=== PATIENT | male | born 1950 | race Caucasian/White ===

== ENCOUNTER 2025-02-24 13:57 | Outpatient (AMB) | payer MEDICARE, MEDICAID, SELFPAY ==
--- NOTE | 2025-02-24 14:16 | A.OFFVIS_ITS ---
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 The patient was recently hospitalized after being found on the floor and unable to get up while living alone in a motel. After a short-term rehab stay, the patient had subsequent hospitalizations in December for weakness and inability to get out of bed, which precipitated a move to a memory care unit on January 09. Cognitive changes, including repetition and difficulty with articulation, were first noticed by the patient's hide and skin processing worker around 2021, with a more rapid decline observed in 2022. The patient has a history of alcohol use, which reportedly stopped in 2021. A prior diagnosis of normal pressure hydrocephalus was suggested following a brain scan in 2021 after a fall. A temporary change in gait, described as a high-stepping motion, was noted in mid-2022 but has since resolved. The patient's hide and skin processing worker reports that the patient has a lifelong history of making poor decisions and was formerly verbally abusive, though this behavior has reportedly decreased. Review of Systems Narrative - Constitutional: Reports history of weakness and a 20-pound weight loss. - Neurological: Reports forgetfulness, cognitive decline with repetition, and difficulty with articulation. - Psychiatric: Denies recent personality change, but notes a decrease in prior aggressive and verbally abusive behavior. - Musculoskeletal: Reports multiple falls and a history of a temporary gait change that has resolved. - urinary: Complain of urgency and incontinence - HEENT: No cold or flu-like illness Also refer to scanned ROS Physical Exam Neuro Other: Mental Status: He is alert and awake with normal spontaneity and fluency of speech. Comprehension is intact. Affect is flat. Mini-mental status score is 20. Cranial Nerves: CN II: Visual beltre full to confrontation, visual acuity intact. CN III, IV, : Pupils equal, round, reactive to light and accommodation. Extraocular movements are normal. CN V: Facial sensation is normal. CN VII: Facial movements symmetrical. CN VIII: Hearing intact to bedside conversation is normal. CN IX, X: Palate elevates symmetrically. CN XI: Shoulder shrug and head turn symmetrical. CN XII: Tongue midline without atrophy or fasciculations. Motor: No obvious focal weakness. Reflexes: Deep tendon reflexes are trace to absent. Coordination: [id number] is okay Gait and Station: Walking cautiously with a walker but can walk without it with no sign of magnet autism or dragging. Extrapyramidal: Full facial expressions and blinking. No rigidity. Movements are appropriate with no tremor or abnormality. Speech: Normal; no dysarthria or tremor. Assessment & Plan Assessment & Plan (1) Multifactorial dementia: Comment: CT brain WO at [facility] in October 2024: Further worsening of left temporal atrophy to severe CT brain WO at [facility] in 2021: Mod ventriculomegaly, probably atrophy, mod cortical atrophy, mod to severe left temporal atrophy Code(s): F03.90 - Unspecified dementia, unspecified severity, without behavioral disturbance, psychotic disturbance, mood disturbance, and anxiety Category: Medical (2) Alzheimer dementia: Code(s): G30.9 - Alzheimer's disease, unspecified; F02.80 - Dementia in other diseases classified elsewhere, unspecified severity, without behavioral disturbance, psychotic disturbance, mood disturbance, and anxiety Category: Medical Qualifiers: Alzheimer's disease onset: late onset Dementia severity: severe Dementia behavioral or psychological symptom: without behavioral, psychotic, or mood disturbance or anxiety Qualified Code(s): G30.1 - Alzheimer's disease with late onset; F02.C0 - Dementia in other diseases classified elsewhere, severe, without behavioral disturbance, psychotic disturbance, mood disturbance, and anxiety Plan Impression: Moderately severe dementia from cortical and especially left temporal atrophy with h/o alcohol drinking. Cerebral ventricles are somewhat enlarged which might suggest an element of normal-pressure hydrocephalus but the amount of temporal lobe degeneration is significant. I am not sure if exploration or treatment of hydrocephalus would make any meaningful practical difference. Conservative management is recommended. Rec: a: Education of b: Should not live alone c: Health proxy should be invoked d: B12/folate levels e: No driving f: Cannot make sound financial decisions g: Memantine 5mg bid Orders: Orders Vitamin B12 and Folate Today F02.C0 - Dementia in other diseases classified elsewhere, severe, without behavioral disturbance, psychotic disturbance, mood disturbance, and anxiety, F03.90 - Unspecified dementia, unspecified severity, without behavioral disturbance, psychotic disturbance, mood disturbance, and anxiety, G30.1 - Alzheimer's disease with late onset Medications: New memantine 5 mg PO BID 180 tabs 0RF 30 days Coding Level of Care Code New Pt Level 5 (92470) Diagnoses Multifactorial dementia F03.90 Severe late onset Alzheimer's dementia without behavioral disturbance, psychotic disturbance, mood disturbance, or anxiety G30.1; F02.C0 Alzheimer's disease onset: late onset Dementia severity: severe Dementia behavioral or psychological symptom: without behavioral, psychotic, or mood disturbance or anxiety Time Spent (min) 60
--- OUTSIDE RECORDS SUMMARY | 2025-02-24 18:55 | XMS_ITS | Encounter Summary ---
Author Organization [facility] Address [address] [place] [address] Care Team Providers Care Powder Mill Operator Name Role Phone Gail Egan MD Primary Care Provider Encounter Details Date Type Department Care Team (Late st Contact Info) Description 11/06/2024 Referral Triage [facility] [address] [place] [address] Piper Casillas Social History Tobacco Use Types Packs/Day Years Used Date Smoking Tobacco: Former Alcohol Use Standard Drinks/Week Comments Not Currently 0 (1 standard drink = 0.6 oz pur e alcohol) Interpersonal Safety Answer Date Record ed Physical Abuse Unrecognized value 10/25/2024 Verbal Abuse Unrecognized value 10/25/2024 Sex and Gender Information Value Date Recorded Sex Assigned at Not on file Legal Sex Male 8:58 PM EST Gender Identity Not on file Sexual Orientation Not on file documented as of this encounter Plan of Treatment Not on file documented as of this encounter Visit Diagnoses Not on filedocumented in this encounter Additional Health Concerns Infection Onset Date Last Indicated Resolved Time Respiratory Rule-Out 12/16/2024 12/16/2024 025 3:27 PM EDT documented as of this encounter Care Teams Powder Mill Operator Relationship Specialty Start Date End Date Gail Egan MD [address] [place] [id number] PCP - General Internal Medicine 01/26/24 documented as of this encounter
--- OUTSIDE RECORDS SUMMARY | 2025-02-24 18:55 | XMS_ITS | Clinical Summary ---
Author Organization [facility] Address [address] [place] [address] Care Team Providers Care Digital Media Intern Name Role Phone Christina Garza DO Primary Care Provider [phone] Allergies Active Allergy Reactions Criticality Noted Date Comments Penicillins 01/24/2022 Medications Medication Sig Dispensed Refills Start Date End Date Status apixaban (ELIQUIS) 5 MG TABS tablet Take by mouth every 12 (twelve) hours. 0 Active atorvastatin (LIPITOR) tablet 10 mg Take 1 tablet (10 mg total) by mouth every evening. 0 Active Coenzyme X22-Ccidsxu E (Qunol Ultra CoQ10) 100-150 MG-UNIT CAPS Take by mouth daily. 0 Active Multiple Vitamins-Minerals (ONE-A-DAY 50 PLUS PO) Take by mouth daily. 0 Active Active Problems No known active problems Family History Relation Name Status Comments Father Mother Social History Tobacco Use Types Packs/Day Years Used Date Smoking Tobacco: Former Cigarettes 0.5 Q uit: 2010 Smokeless Tobacco: Never Tobacco Cessation:Counseling Given: Not Answered Alcohol Use Standard Drinks/Week Comments Not Currently 0 (1 standard drink = 0.6 oz pur e alcohol) Sex and Gender Information Value Date Recorded Sex Assigned at Not on file Gender Identity Not on file Sexual Orientation Not on file Job Start Date Occupation Industry Not on file Not on file Not on file Last Filed Vital Signs Vital Sign Reading Time Taken Comments Blood Pressure 126/64 05/10/2022 11:07 AM EST Pulse 70 05/10/2022 11:07 AM EST Temperature 36.3 C (97.3 F) 05/10/2022 11:07 AM EST Respiratory Rate - - Oxygen Saturation 100% 05/10/2022 11:07 AM EST Inhaled Oxygen Concentration - - Weight 85.7 kg (189 lb) 05/10/2022 11:07 AM EST Height 172.7 cm (5' 8 ) 05/10/2022 11:07 AM EST Body Mass Index 28.74 05/10/2022 11:07 AM EST Plan of Treatment Health Maintenance Due Date Last Done Comments Hepatitis C Screening 1950 Depression Screening 1962 Preventative Health Evaluation 01/27/1968 Colon Cancer Screening (Colonoscopy) 1995 Shingrix-Zoster Vaccine (1 o f 2) 01/27/2000 Fall Risk Assessment 2015 Pneumococcal Vaccine (3 of 3 - PPSV23 or PCV20) 02/20/2021 02/21/2016, 02/21/2011 DTap / Tdap / Td (3 - Td or Tdap) 07/20/2021 07/21/2011, 07/21/2011 COVID-19 Vaccine (3 - 2024-2 6 season) 2024 04/14/2021, 07/08/2020 Influenza Vaccine (#1) 2024 RSV Adult > 60+ Yrs or (1 - 1-dose 75+ series) 2025 Hepatitis B Vaccines Aged Out No long er eligible based on patient's age to complete this topic RSV Ped < 20 months Aged Out No longe r eligible based on patient's age to complete this topic Care Teams Digital Media Intern Relationship Specialty Start Date End Date Christina Garza DO [address] [place] [address] PCP - General Family Medicine 09/17/21
--- OUTSIDE RECORDS SUMMARY | 2025-02-24 18:55 | XMS_ITS | Data Portability ---
Author Organization [facility] [employer] [facility], Main Office Address [address] [place] [address] Care Team Providers Care Proof Operator Name Role Phone [facility] Primary Care Provider [phone] Assessment No assessment recorded. Plan of Treatment Reminders Order Date Submit Date Provider Last Modified By Organization Details Last Modified Time Details Appointments None record ed. Lab None record ed. Referral None record ed. Procedures None record ed. Surgeries None record ed. Imaging None record ed. Medication Orders None record ed. Patient TargetsNo targets recorded. Patient InstructionsNo instructions recorded. Reason for Referral None Reported. Problems Name Problem SNOMED Code Status Onset Date Resolution Date Notes Provider Name and Address Organization Details Recorded Time Essential hypertension 69084997 Active 2024 Not Available [facility] 16:51:19 Hyperlipidemi a 31092054 Active 2024 Not Available [facility] 16:51:20 Atrial fibrillation 74528586 Active 2024 Not Available [facility] 16:51:21 Benign prostatic hyperplasia 569825224 Active 2024 Not Available [facility] 16:51:21 Normal pressure hydrocephalus 27827062 Active 2024 CHENTE LANGE, SHABANA [address], [address], [place], [address] , [facility] 17:28:12 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 169461009 Active 2024 Not Available [facility] 16:51:22 Adult failure to thrive syndrome 688494725 Active 2024 Not Available [facility] 16:51:23 Malignant melanoma of skin 86877386 Active 2024 Not Available [facility] 5 16:51:23 Hemorrhoids 72626333 Active 2024 Not Available [facility] 16:51:23 Diverticulosi s of large intestine without diverticuliti s 96588705 Active 2024 Not Available [facility] 16:51:24 Disorder in remission 576404688 Active 2024 Not Available [facility] 16:54:46 Rhabdomyolysi s 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 Active 2024 Not Available [facility] 5 16:56:40 Fall Active 2024 Not Available [facility] 5 13:13:46 Injury of head 61334740 Active 2024 Not Available [facility] 5 13:15:43 History of deep vein thrombosis 521855200 Active 2024 CHENTE LANGE CNP [address] [place] [address], [phone] , [facility] 5 17:28:14 Retention of urine 153126496 Active 2024 CHENTE LANGE CNP [address] [place] [address], [phone] , [facility] 5 17:28:16 History of fall 601414279 Active 2024 CHENTE LANGE CNP [address] [place] [address], [phone] , [facility] 5 17:29:12 Problem Notes None recorded. Medical Equipment None Reported. Allergies Allergen ID Allergen Name Allergen Category Reaction Reaction Severity Criticality Documentation Date Start Date Code Code System Note Provider Name and Address Organization Details Recorded Time 49631 Product containin g penicilli n (product) medicatio n Not available Not available Not available 10/25/20242024 54609 8001 SNOMED Not Available [facility] 16:51:25 Medications Name Sig Start Date Stop Date Status Note LastModified by Organization Details LastModified Time Non-Aspirin Extra Strength 500 mg tablet Give 1 tablet by mouth every 4 hours as needed for Pain Do not exceed 3 grams in 24 hours AND Give 1 tablet by mouth every 4 hours as needed for Elevated temperature of 100.4 or greater Do not exceed 3 grams in 24 hours 2024 active Not Available Not Available Not Avai lable tamsulosin 0.4 mg capsule Give 1 capsule by mouth one time a day for BPH Do not crush/chew or open capsule. Take 30 minutes after the same meal each day. May cause dizziness. 2024 active Not Available Not Available Not Avai lable Laxative (sennosides) 8.6 mg tablet Give 1 tablet by mouth every 24 hours as needed for Constipatio n 2024 active Not Available Not Available Not Avai lable sodium phosphates 19 gram-7 gram/197 mL enema Insert 1 unit rectally every 24 hours as needed for Constipatio n Use only if Bisacodyl Suppository is ineffective 2024 active Not Available Not Available Not Avai lable Eliquis 5 mg tablet Give 1 tablet by mouth two times a day for A-Fib Monitor for bleeding, bruising, and black tarry stools 2024 active Not Available Not Available Not Avai lable OneLAX Bisacodyl 10 mg rectal suppository Insert 1 suppository rectally every 24 hours as needed for constipatio n Use if Senna is Ineffective 2024 active Not Available Not Available Not Avai lable Vitals Date Recorded Body weight Heart rate Respiratory rate Body temperature Oxygen saturation Systolic And Diastolic Provider Name and Address Organization Details Last Updated DateTime 52214.6 5 g 65 /min 18 /min 97.5 [degF] 98 % 103/63 mm[Hg] CHENTE LANGE, RECREATION TECHNICIAN [address] [facility], [address], [place], [address], [place] - [facility] 16:37:24 Social History None recorded. Functional Status None recorded. Mental Status None recorded. Family History Nothing Reported. Medical History No medical history recorded. Past Encounters Encounter ID Performer Location Encounter Start Date Encounter Closed Date Diagnosis/Indication Diagnosis SNOMED-CT Code Diagnosis ICD10 Code Diagnosis IMO Codes Diagnosis Note [id number] CHENTE LANGE RECREATION TECHNICIAN [facility] [address] [place] [address] 10/26/2024 15:09:41 11/02/2024 21:07:08 Normal pressure hydrocephalus 07794437 G91.2 03817 Refer to neurology for evaluation and treatment. PT, OT evaluation and treatment for gait training and safety.Fal l precaution in place History of deep vein thrombosis 627561793 Z86.118 8209246 hx of LLE DVTcurrent ly is on eliquis 5 mg BIDcontinu e Retention of urine 00853 4002 R33.9 54667 Started flomax during the hospitalmo nitor retention. History of fall 59589451 9 Z91.81 965768 PT, OT eval and treatmentm onitor fall risk, precuation in place [id number] HANSEL BRIONES NP [facility] [address] [place] [id number] 10/30/2024 22:22:36 11/03/2024 21:59:49 Normal pressure hydrocephalus 06913522 G91.2 59484 Refer to neurology for evaluation and treatment. PT, OT evaluation and treatment for gait training and safety.Fal l precaution in place History of deep vein thrombosis 786628538 Z86.056 4607004 hx of LLE DVTcurrent ly is on eliquis 5 mg BIDcontinu e Retention of urine 85008 4002 R33.9 84556 Started flomax during the hospitalmo nitor retention. History of fall 26537025 9 Z91.81 869130 PT, OT eval and treatmentm onitor fall risk, precuation in place Health Concerns Section Related Observation LastModified by Organization Detai ls LastModified Time None Recorded Concern Status LastModified by Organization Details LastModified Time None Recorded Advance Directives Directive None Recorded Payers Insurance Date Sequence Insurance Name Policy Number Policy Briones Covered Member ID Briones Member ID Guarantor Name 10/28/2024 1 [facility]: MEDICARE PPO BLUE (MEDICARE REPLACEMENT PPO) [id number] Ren Stein [id number] Ren Stein Notes Date Note Type Note Provider Name and Address Organization Details Recorded Time 10/26/2024 text/html Ren seen today for initial intake visit. Pt is a 74 y/o male admitted from hospital after presenting a fall and diagnosed with NPH. He stayed in ED and medical unit for couple of days and discharged to here for rehab. He was evaluated by psych for capacity evaluation in ED. His HCP is his ex .He was not treated for NPH, recommended to have neurology evaluation. During the hospital stay, he developed urinary retention and now he is on flomax. He lives in [facility] now, and his ex- reports that he is not safe to go to [facility] by himself. PMH significant for HTN, diverticulosis, malignant melanoma, HLD, internal hemorrhoids, LE DVT, and prothrombin mutation. Upon assessment today, he was alert, mildly confused, VSS and in NAD. He denies pain or difficulty voiding at this time. Code status reviewed, DNR, DNI.Pelaez fall, 75, high risk. CHENTE LANGE, SHABANA [address] [facility], [address], [place], [address], [employer] 10/26/2024 17:29:49 10/30/2024 text/html Ren seen today for acute visit. Pt is a 74 y/o male admitted from hospital after presenting a fall and diagnosed with NPH.PMH significant for HTN, diverticulosis, malignant melanoma, HLD, internal hemorrhoids, LE DVT, and prothrombin mutation. Upon assessment today, he was alert, mildly confused, Sitting in W/C. VSS and in NAD. He denies pain or difficulty voiding at this time. HANSEL BRIONES, CORINNE [address] [facility], [address], [place], [address], [employer] 10/30/2024 22:26:44
--- OUTSIDE RECORDS SUMMARY | 2025-02-24 18:55 | XMS_ITS | Encounter Summary ---
Author Organization [facility] Address [address] [place] [address] Care Team Providers Care Hydrostatic Tester Name Role Phone Gail Egan MD Primary Care Provider Encounter Details Date Type Department Care Team (Late st Contact Info) Description 11/08/2024 Lab Requisition [facility] - Main Lab [address] [facility] [place] [address] Leonard Giraldo MD [address] [place] [address] [address] [place], [address] Essential (primary) hypertension Social History Tobacco Use Types Packs/Day Years [...] documented as of this encounter Visit Diagnoses Diagnosis Essential (primary) hypertension Unspecified essential hypertension documented in this encounter Additional Health Concerns Infection Onset Date Last Indicated Resolved Time Respiratory Rule-Out 12/16/2024 12/16/2024 025 3:27 PM EDT documented as of this encounter Care Teams Hydrostatic Tester Relationship Specialty Start Date End Date Gail Egan MD [address] [place] [address] PCP - General Internal Medicine 01/26/24 documented as of this encounter
--- OUTSIDE RECORDS SUMMARY | 2025-02-24 18:55 | XMS_ITS | Encounter Summary ---
Author Organization [facility] Address [address] [place] [address] Care Team Providers Care Recreation Program Specialist Name Role Phone Gail Egan MD Primary Care Provider Encounter Details Date Type Department Care Team (Late st Contact Info) Description 11/01/2024 Lab Requisition [facility] - Main Lab [address] [facility] [place] [address] Leonard Giraldo MD [address] [place] [address] [address] [place], [phone] Essential (primary) hypertension Social History Tobacco [...] on file documented as of this encounter Procedures Procedure Name Priority Date/Time Associated Diagnosis Comments COMPLETE BLOOD COUNT Routine 11/04/2024 5:39 AM EDT Essential (primary) hypertension BASIC METABOLIC PANEL Routine 11/04/2024 5:39 AM EDT Essential (primary) hypertension documented in this encounter Results * (ABNORMAL) Basic metabolic panel (11/04/2024 5:39 AM EDT) Sodium 140 133 - 145 mmol/L LAB CHEMISTRY METHOD 11/04/2024 11:35 AM [facility] Potassium 4.0 3.5 - 5.5 mmol/L LAB CHEMISTRY METHOD 11/04/2024 11:35 AM [facility] Chloride 107 96 - 110 mmol/L LAB CHEMISTRY METHOD 11/04/2024 11:35 AM [facility] CO2 25 21 - 32 mmol/L LAB CHEMISTRY METHOD 11/04/2024 11:35 AM [facility] Anion Gap 8 3 - 11 LAB CHEMISTRY METHOD 11/04/2024 11:35 AM [facility] Glucose 59(L) 70 - 100 mg/dL LAB CHEMISTRY METHOD 11/04/2024 11:35 AM [facility] BUN 18 5 - 25 mg/dL LAB CHEMISTRY METHOD 11/04/2024 11:35 AM [facility] Creatinine 1.03 0.70 - 1.30 mg/dL LAB CHEMISTRY METHOD 11/04/2024 11:35 AM [facility] eGFR 76 >=60 mL/min/1. 73m2 LAB CHEMISTRY METHOD 11/04/2024 11:35 AM [facility] Comment:Calculation based on the Chronic Kidney Disease Epidemiology Collaboration (CKD-EPI) equation refit without adjustment for race. BUN/Creatinine Ratio 17.5 LAB CHEMISTRY METHOD 11/04/2024 11:35 AM [facility] Calcium 8.7 8.5 - 10.5 mg/dL LAB CHEMISTRY METHOD 11/04/2024 11:35 AM EDT [facility] Blood Venous blood specimen / Unknown Venipuncture / Unknown 11/04/2024 5:39 AM EDT 11/04/2024 10:15 AM EDT us Leonard Giraldo MD LAB BLOOD ORDERABLES Final Resul t [facility] [address] [place] [address], * (ABNORMAL) Complete blood count (11/04/2024 5:39 AM EDT) WBC 8.1 4.8 - 10.8 K/mcL LAB HEMETOLOGY METHOD 11/04/2024 11:23 AM [facility] RBC 4.50 4.50 - 5.50 M/[facility] LAB HEMETOLOGY METHOD 11/04/2024 11:23 AM [facility] Hemoglobin 13.8 13.5 - 17.5 g/dL LAB HEMETOLOGY METHOD 11/04/2024 11:23 AM [facility] Hematocrit 41.9(L) 42.0 - 54.0 % LAB HEMETOLOGY METHOD 11/04/2024 11:23 AM [facility] MCV 93.3 79.0 - 98.0 FL LAB HEMETOLOGY METHOD 11/04/2024 11:23 AM EDT [facility] MCH 30.7 27.0 - 32.0 pcg LAB HEMETOLOGY METHOD 11/04/2024 11:23 AM [facility] MCHC 32.9 32.0 - 37.0 g/dL LAB HEMETOLOGY METHOD 11/04/2024 11:23 AM [facility] RDW 13.3 11.0 - 15.0 % LAB HEMETOLOGY METHOD 11/04/2024 11:23 AM EDT [facility] Platelets 205 130 - 400 K/mcL LAB HEMETOLOGY METHOD 11/04/2024 11:23 AM EDT [facility] MPV 11.1(H) 7.0 - 11.0 FL LAB HEMETOLOGY METHOD 11/04/2024 11:23 AM EDT [facility] NRBC 0.0 <1.0 % LAB HEMETOLOGY METHOD 11/04/2024 11:23 AM EDT [facility] NRBC Absolute 0.00 <0.10 K/mcL LAB HEMETOLOGY METHOD 11/04/2024 11:23 AM EDT [facility] Blood Venous blood specimen / Unknown Venipuncture / Unknown 11/04/2024 5:39 AM EDT 11/04/2024 10:15 AM EDT us Leonard Giraldo MD LAB BLOOD ORDERABLES Final Resul t [facility] [address] [place] [address], documented in this encounter Visit Diagnoses Diagnosis Essential (primary) hypertension Unspecified essential hypertension documented in this encounter Additional Health Concerns Infection Onset Date Last Indicated Resolved Time Respiratory Rule-Out 12/16/2024 12/16/2024 025 3:27 PM EDT documented as of this encounter Care Teams Recreation Program Specialist Relationship Specialty Start Date End Date Gail Egan MD [address] [place] [id number] PCP - General Internal Medicine 01/26/24 documented as of this encounter
--- OUTSIDE RECORDS SUMMARY | 2025-02-24 18:55 | XMS_ITS ---
Author Name [facility] Organization Unknown Care Team Organization Name Specialty Phone Email Start Date End Da te [facility] Christina Garza DO Primary Care 02/08/202211/01
--- OUTSIDE RECORDS SUMMARY | 2025-02-24 18:55 | XMS_ITS | Encounter Summary ---
Author Organization [facility] Address [address] [place] [address] Care Team Providers Care Ergonomist Name Role Phone Gail Egan MD Primary Care Provider Encounter Details Date Type Department Care Team (Late st Contact Info) Description 10/28/2024 Lab Requisition [facility] - Main Lab [address] [facility] [place] [address] Leonard Giraldo MD [address] [place] [address] [address] [place], [phone] Essential (primary) hypertension Social History Tobacco [...] Associated Diagnosis Comments COMPLETE BLOOD COUNT Routine 10/28/2024 5:55 AM EDT Essential (primary) hypertension COMPREHENSIVE METABOLIC PANEL Routine 10/28/2024 5:55 AM EDT Essential (primary) hypertension documented in this encounter Results * (ABNORMAL) Comprehensive metabolic panel (10/28/2024 5:55 AM EDT) Sodium 140 133 - 145 mmol/L LAB CHEMISTRY METHOD 10/28/2024 2:27 PM [facility] Potassium 4.5 3.5 - 5.5 mmol/L LAB CHEMISTRY METHOD 10/28/2024 2:27 PM [facility] Chloride 107 96 - 110 mmol/L LAB CHEMISTRY METHOD 10/28/2024 2:27 PM [facility] CO2 28 21 - 32 mmol/L LAB CHEMISTRY METHOD 10/28/2024 2:27 PM [facility] Anion Gap 5 3 - 11 LAB CHEMISTRY METHOD 10/28/2024 2:27 PM [facility] Glucose 61(L) 70 - 100 mg/dL LAB CHEMISTRY METHOD 10/28/2024 2:27 PM [facility] BUN 15 5 - 25 mg/dL LAB CHEMISTRY METHOD 10/28/2024 2:27 PM [facility] Creatinine 0.99 0.70 - 1.30 mg/dL LAB CHEMISTRY METHOD 10/28/2024 2:27 PM [facility] eGFR 80 >=60 mL/min/1. 73m2 LAB CHEMISTRY METHOD 10/28/2024 2:27 PM [facility] Comment:Calculation based on the Chronic Kidney Disease Epidemiology Collaboration (CKD-EPI) equation refit without adjustment for race. BUN/Creatinine Ratio 15.2 LAB CHEMISTRY METHOD 10/28/2024 2:27 PM [facility] Calcium 8.8 8.5 - 10.5 mg/dL LAB CHEMISTRY METHOD 10/28/2024 2:27 PM EDT [facility] AST (SGOT) 22 10 - 42 unit/L LAB CHEMISTRY METHOD 10/28/2024 2:27 PM EDT [facility] ALT (SGPT) 22 10 - 60 unit/L LAB CHEMISTRY METHOD 10/28/2024 2:27 PM T [facility] Alkaline Phosphatase 89 42 - 121 unit/L LAB CHEMISTRY METHOD 10/28/2024 2:27 PM EDT [facility] Total Protein 6.0 6.0 - 8.0 g/dL LAB CHEMISTRY METHOD 10/28/2024 2:27 PM [facility] Albumin 3.0(L) 3.2 - 5.0 g/dL LAB CHEMISTRY METHOD 10/28/2024 2:27 PM [facility] Total Bilirubin 0.5 0.0 - 1.4 mg/dL LAB CHEMISTRY METHOD 10/28/2024 2:27 PM T [facility] Blood Venous blood specimen / Unknown Venipuncture / Unknown 10/28/2024 5:55 AM EDT 10/28/2024 12:00 PM EDT us Leonard Giraldo MD LAB BLOOD ORDERABLES Final Resul t [facility] [address] [place] [address], * (ABNORMAL) Complete blood count (10/28/2024 5:55 AM EDT) WBC 8.1 4.8 - 10.8 K/mcL LAB HEMETOLOGY METHOD 10/28/2024 1:53 PM EDT [facility] RBC 4.30(L) 4.50 - 5.50 M/mcL LAB HEMETOLOGY METHOD 10/28/2024 1:53 PM EDT [facility] Hemoglobin 13.2(L) 13.5 - 17.5 g/dL LAB HEMETOLOGY METHOD 10/28/2024 1:53 PM EDT [facility] Hematocrit 40.2(L) 42.0 - 54.0 % LAB HEMETOLOGY METHOD 10/28/2024 1:53 PM EDT [facility] MCV 93.9 79.0 - 98.0 FL LAB HEMETOLOGY METHOD 10/28/2024 1:53 PM EDT [facility] MCH 30.8 27.0 - 32.0 pcg LAB HEMETOLOGY METHOD 10/28/2024 1:53 PM EDT [facility] MCHC 32.8 32.0 - 37.0 g/dL LAB HEMETOLOGY METHOD 10/28/2024 1:53 PM EDT [facility] RDW 13.1 11.0 - 15.0 % LAB HEMETOLOGY METHOD 10/28/2024 1:53 PM EDT [facility] Platelets 215 130 - 400 K/mcL LAB HEMETOLOGY METHOD 10/28/2024 1:53 PM EDT [facility] MPV 10.5 7.0 - 11.0 FL LAB HEMETOLOGY METHOD 10/28/2024 1:53 PM EDT [facility] NRBC 0.0 <1.0 % LAB HEMETOLOGY METHOD 10/28/2024 1:53 PM EDT [facility] NRBC Absolute 0.00 <0.10 K/mcL LAB HEMETOLOGY METHOD 10/28/2024 1:53 PM EDT [facility] Blood Venous blood specimen / Unknown Venipuncture / Unknown 10/28/2024 5:55 AM EDT 10/28/2024 12:00 PM EDT us Leonard Giraldo MD LAB BLOOD ORDERABLES Final Resul t [facility] [address] [place] [address], documented in this encounter Visit Diagnoses Diagnosis Essential (primary) hypertension Unspecified essential hypertension documented in this encounter Additional Health Concerns Infection Onset Date Last Indicated Resolved Time Respiratory Rule-Out 12/16/2024 12/16/2024 025 3:27 PM EDT documented as of this encounter Care Teams Ergonomist Relationship Specialty Start Date End Date Gail Egan MD [address] [place] [id number] PCP - General Internal Medicine 01/26/24 documented as of this encounter
--- OUTSIDE RECORDS SUMMARY | 2025-02-24 18:55 | XMS_ITS | Encounter Summary ---
Author Organization [facility] Address [address] [place] [address] Care Team Providers Care Manufacturing Tech Name Role Phone Gail Egan MD Primary Care Provider Encounter Details Date Type Department Care Team (Late st Contact Info) Description 02/18/2025 Lab Requisition [facility] - Main Lab [address] [facility] [place] [address] Nicole Corbett MD [address] [place] [address] Essential (primary) hypertension Social History Tobacco Use Types Packs/Day Years Used Date Smoking Tobacco: Former Alcohol Use Standard Drinks/Week Comments Not Currently 0 (1 standard drink = 0.6 oz pur e alcohol) Food Risk Answer Date Recorded Within the past 12 months we worried whether our food would run out before we got money to buy more. Never true 12/30/2024 Within the past 12 months th e food we bought just didn't last and we didn't have money to get more. Never true 12/30/2024 Interpersonal Safety Answer Date Record ed Physical Abuse Unrecognized value 12/24/2024 Verbal Abuse Unrecognized value 12/24/2024 Sex and Gender Information Value Date Recorded Sex Assigned at Not on file Legal Sex Male 8:58 PM EST Gender Identity Not on file Sexual Orientation Not on file documented as of this encounter Functional Status * Are you deaf or do you have serious difficulty hearing? Answer Date of Assessment Author No 12/21/2024 10:37 PM EDT Milady Reynolds RN * Are you blind or do you have serious difficulty seeing, even when wearing glasses? Answer Date of Assessment Author No 12/21/2024 10:37 PM EDT Milady Reynolds RN * Do you have serious difficulty walking or climbing stairs? Answer Date of Assessment Author Yes 12/21/2024 10:37 PM EDT Milady Reynolds RN * Do you have serious difficulty dressing or bathing? Answer Date of Assessment Author Yes 12/21/2024 10:37 PM EDT Milady Reynolds RN * Because of a physical, mental, or emotional condition, do you have serious difficulty doing errandsalone such as visiting the doctor? Answer Date of Assessment Author Yes 12/21/2024 10:37 PM EDT Milady Reynolds RN documented as of this encounter Mental Status * Because of a physical, mental, or emotional condition, do you have serious difficulty concentrating, remembering, or making decisions? (5 years old or older) Answer Entry Date Author Yes 12/21/2024 10:37 PM EDT Milady Reynolds RN documented in this encounter Plan of Treatment Not on file documented as of this encounter Procedures Procedure Name Priority Date/Time Associated Diagnosis Comments COMPLETE BLOOD COUNT Routine 02/18/2025 8:04 AM EST Essential (primary) hypertension documented in this encounter Results * (ABNORMAL) Complete blood count (02/18/2025 8:04 AM EST) WBC 5.9 4.8 - 10.8 K/[facility] LAB HEMETOLOGY METHOD 02/18/2025 10:26 AM EST [facility] RBC 4.30(L) 4.50 - 5.50 /[facility] LAB HEMETOLOGY METHOD 02/18/2025 10:26 AM EST [facility] Hemoglobin 13.1(L) 13.5 - 17.5 g/dL LAB HEMETOLOGY METHOD 02/18/2025 10:26 AM [facility] Hematocrit 39.9(L) 42.0 - 54.0 % LAB HEMETOLOGY METHOD 02/18/2025 10:26 AM [facility] MCV 92.1 79.0 - 98.0 FL LAB HEMETOLOGY METHOD 02/18/2025 10:26 AM [facility] MCH 30.3 27.0 - 32.0 pcg LAB HEMETOLOGY METHOD 02/18/2025 10:26 AM [facility] MCHC 32.8 32.0 - 37.0 g/dL LAB HEMETOLOGY METHOD 02/18/2025 10:26 AM [facility] RDW 13.8 11.0 - 15.0 % LAB HEMETOLOGY METHOD 02/18/2025 10:26 AM [facility] Platelets 152 130 - 400 K/mcL LAB HEMETOLOGY METHOD 02/18/2025 10:26 AM [facility] MPV 11.3(H) 7.0 - 11.0 FL LAB HEMETOLOGY METHOD 02/18/2025 10:26 AM [facility] NRBC 0.0 <1.0 % LAB HEMETOLOGY METHOD 02/18/2025 10:26 AM [facility] NRBC Absolute 0.00 <0.10 K/mcL LAB HEMETOLOGY METHOD 02/18/2025 10:26 AM [facility] Blood Venous blood specimen / Unknown Venipuncture / Unknown 02/18/2025 8:04 AM EST 02/18/2025 10:04 AM EST us Nicole Corbett MD LAB BLOOD ORDERABLES Final Resu lt [facility] [address] [place] [address], documented in this encounter Visit Diagnoses Diagnosis Essential (primary) hypertension Unspecified essential hypertension documented in this encounter Care Teams Manufacturing Tech Relationship Specialty Start Date End Date Gail Egan MD [address] [place] [id number] PCP - General Internal Medicine 01/26/24 documented as of this encounter
--- OUTSIDE RECORDS SUMMARY | 2025-02-24 18:56 | XMS_ITS | Encounter Summary ---
Author Organization [facility] Address [address] [place] [address] Care Team Providers Care [employer] Consultant Name Role Phone Gail Egan MD Primary Care Provider Encounter Details Date Type Department Care Team (Late st Contact Info) Description 01/14/2025 Lab Requisition [facility] - Main Lab [address] [place] [address] Nicole Corbett MD [address] [place] [address] Muscle weakness (generalized); Essential (primary) hypertension; Unspecified dementia, unspecified severity, without behavioral disturbance, psychotic disturbance, mood disturbance, and anxiety (CMS/HCC V24, CMS/HCC V28); Chronic obstructive pulmonary disease, unspecified (CMS/HCC V24, CMS/HCC V28) Social History Tobacco Use Types Packs/Day Years [...] Assessment Author Yes 12/21/2024 10:37 PM EDT Milayd Reynolds RN * Because of a physical, [...] Procedure Name Priority Date/Time Associated Diagnosis Comments CBC WITH AUTO DIFFERENTIAL Routine 01/14/2025 6:36 AM EDT Muscle weakness (generalized) Essential (primary) hypertension Unspecified dementia, unspecified severity, without behavioral disturbance, psychotic disturbance, mood disturbance, and anxiety (CMS/HCC V24, CMS/HCC V28) Chronic obstructive pulmonary disease, unspecified (CMS/HCC V24, CMS/HCC V28) CBC AND DIFFERENTIAL Routine 01/14/2025 6:36 AM EDT Muscle weakness (generalized) Essential (primary) hypertension Unspecified dementia, unspecified severity, without behavioral disturbance, psychotic disturbance, mood disturbance, and anxiety (CMS/HCC V24, CMS/HCC V28) Chronic obstructive pulmonary disease, unspecified (CMS/HCC V24, CMS/HCC V28) MAGNESIUM Routine 01/14/2025 6:36 AM EDT Muscle weakness (generalized) Essential (primary) hypertension Unspecified dementia, unspecified severity, without behavioral disturbance, psychotic disturbance, mood disturbance, and anxiety (CMS/HCC V24, CMS/HCC V28) Chronic obstructive pulmonary disease, unspecified (CMS/HCC V24, CMS/HCC V28) FOLATE Routine 01/14/2025 6:36 AM EDT Muscle weakness (generalized) Essential (primary) hypertension Unspecified dementia, unspecified severity, without behavioral disturbance, psychotic disturbance, mood disturbance, and anxiety (CMS/HCC V24, CMS/HCC V28) Chronic obstructive pulmonary disease, unspecified (CMS/HCC V24, CMS/HCC V28) COMPREHENSIVE METABOLIC PANEL Routine 01/14/2025 6:36 AM EDT Muscle weakness (generalized) Essential (primary) hypertension Unspecified dementia, unspecified severity, without behavioral disturbance, psychotic disturbance, mood disturbance, and anxiety (CMS/HCC V24, CMS/HCC V28) Chronic obstructive pulmonary disease, unspecified (CMS/HCC V24, CMS/HCC V28) BASIC METABOLIC PANEL Routine 01/14/2025 6:36 AM EDT Muscle weakness (generalized) Essential (primary) hypertension Unspecified dementia, unspecified severity, without behavioral disturbance, psychotic disturbance, mood disturbance, and anxiety (CMS/HCC V24, CMS/HCC V28) Chronic obstructive pulmonary disease, unspecified (CMS/HCC V24, CMS/HCC V28) documented in this encounter Results * (ABNORMAL) CBC auto differential (01/14/2025 6:36 AM EDT) WBC 6.4 4.8 - 10.8 K/mcL LAB HEMETOLOGY METHOD 01/14/2025 8:40 AM [facility] RBC 4.30(L) 4.50 - 5.50 M/mcL LAB HEMETOLOGY METHOD 01/14/2025 8:40 AM [facility] Hemoglobin 12.7(L) 13.5 - 17.5 g/dL LAB HEMETOLOGY METHOD 01/14/2025 8:40 AM [facility] Hematocrit 39.7(L) 42.0 - 54.0 % LAB HEMETOLOGY METHOD 01/14/2025 8:40 AM [facility] MCV 92.5 79.0 - 98.0 FL LAB HEMETOLOGY METHOD 01/14/2025 8:40 AM [facility] MCH 29.6 27.0 - 32.0 pcg LAB HEMETOLOGY METHOD 01/14/2025 8:40 AM [facility] MCHC 32.0 32.0 - 37.0 g/dL LAB HEMETOLOGY METHOD 01/14/2025 8:40 AM [facility] RDW 13.6 11.0 - 15.0 % LAB HEMETOLOGY METHOD 01/14/2025 8:40 AM [facility] Platelets 172 130 - 400 K/mcL LAB HEMETOLOGY METHOD 01/14/2025 8:40 AM [facility] MPV 11.3(H) 7.0 - 11.0 FL LAB HEMETOLOGY METHOD 01/14/2025 8:40 AM [facility] NRBC 0.0 <1.0 % LAB HEMETOLOGY METHOD 01/14/2025 8:40 AM [facility] NRBC Absolute 0.00 <0.10 K/mcL LAB HEMETOLOGY METHOD 01/14/2025 8:40 AM [facility] Neutrophils Relative 62.7 % LAB HEMETOLOGY METHOD 01/14/2025 8:40 AM [facility] Lymphocytes Relative 24.5 % LAB HEMETOLOGY METHOD 01/14/2025 8:40 AM [facility] Monocytes Relative 7.2 % LAB HEMETOLOGY METHOD 01/14/2025 8:40 AM [facility] Eosinophils Relative 4.8 % LAB HEMETOLOGY METHOD 01/14/2025 8:40 AM [facility] Basophils Relative 0.5 % LAB HEMETOLOGY METHOD 01/14/2025 8:40 AM [facility] Immature Granulocytes Relative 0.3 % LAB HEMETOLOGY METHOD 01/14/2025 8:40 AM [facility] Neutrophils Absolute 4.01 1.50 - 7.00 K/mcL LAB HEMETOLOGY METHOD 01/14/2025 8:40 AM [facility] Lymphocytes Absolute 1.57 1.00 - 5.00 K/mcL LAB HEMETOLOGY METHOD 01/14/2025 8:40 AM [facility] Monocytes Absolute 0.46 0.20 - 1.00 K/mcL LAB HEMETOLOGY METHOD 01/14/2025 8:40 AM [facility] Eosinophils Absolute 0.31 0.00 - 0.50 K/mcL LAB HEMETOLOGY METHOD 01/14/2025 8:40 AM [facility] Basophils Absolute 0.03 0.00 - 0.20 K/mcL LAB HEMETOLOGY METHOD 01/14/2025 8:40 AM [facility] Immature Granulocytes Absolute 0.02 0.00 - 0.03 K/mcL LAB HEMETOLOGY METHOD 01/14/2025 8:40 AM [facility] Blood Venous blood specimen / Unknown Venipuncture / Unknown 01/14/2025 6:36 AM EDT 01/14/2025 7:53 AM EDT us Nicole Corbett MD LAB BLOOD ORDERABLES Final Resu lt Performing Organization Address [facility]/ZIP Co de Phone Number [facility] [address] [place] [address], [place] [phone] * (ABNORMAL) Folate (01/14/2025 6:36 AM EDT) [facility] Folate >20.0(H) 2.8 - 17.0 ng/ml LAB CHEMISTRY METHOD 01/14/2025 9:51 AM EDT [facility] Blood Venous blood specimen / Unknown Venipuncture / Unknown 01/14/2025 6:36 AM EDT 01/14/2025 7:53 AM EDT us Nicole Corbett MD LAB BLOOD ORDERABLES Final Resu lt Performing Organization Address [facility] de Phone Number [facility] [address] [place] [address], [place] [phone] * Magnesium (01/14/2025 6:36 AM EDT) [facility] Magnesium 2.2 1.9 - 2.6 mg/dL LAB CHEMISTRY METHOD 01/14/2025 9:30 AM EDT [facility] Blood Venous blood specimen / Unknown Venipuncture / Unknown 01/14/2025 6:36 AM EDT 01/14/2025 7:53 AM EDT us Nicole Corbett MD LAB BLOOD ORDERABLES Final Resu lt Performing Organization Address [facility]/ZIP Co de Phone Number [facility] [address] [place] [address], [place] [phone] * (ABNORMAL) Comprehensive metabolic panel (01/14/2025 6:36 AM EDT) Sodium 141 133 - 145 mmol/L LAB CHEMISTRY METHOD 01/14/2025 9:30 AM [facility] Potassium 3.6 3.5 - 5.5 mmol/L LAB CHEMISTRY METHOD 01/14/2025 9:30 AM [facility] Chloride 107 96 - 110 mmol/L LAB CHEMISTRY METHOD 01/14/2025 9:30 AM [facility] CO2 26 21 - 32 mmol/L LAB CHEMISTRY METHOD 01/14/2025 9:30 AM [facility] Anion Gap 8 3 - 11 LAB CHEMISTRY METHOD 01/14/2025 9:30 AM [facility] Glucose 70 70 - 100 mg/dL LAB CHEMISTRY METHOD 01/14/2025 9:30 AM [facility] BUN 13 5 - 25 mg/dL LAB CHEMISTRY METHOD 01/14/2025 9:30 AM [facility] Creatinine 0.83 0.70 - 1.30 mg/dL LAB CHEMISTRY METHOD 01/14/2025 9:30 AM [facility] eGFR 92 >=60 mL/min/1. 73m2 LAB CHEMISTRY METHOD 01/14/2025 9:30 AM [facility] Comment:Calculation based on the Chronic Kidney Disease Epidemiology Collaboration (CKD-EPI) equation refit without adjustment for race. BUN/Creatinine Ratio 15.7 LAB CHEMISTRY METHOD 01/14/2025 9:30 AM [facility] Calcium 8.9 8.5 - 10.5 mg/dL LAB CHEMISTRY METHOD 01/14/2025 9:30 AM [facility] AST (SGOT) 19 10 - 42 unit/L LAB CHEMISTRY METHOD 01/14/2025 9:30 AM [facility] ALT (SGPT) 23 10 - 60 unit/L LAB CHEMISTRY METHOD 01/14/2025 9:30 AM [facility] Alkaline Phosphatase 85 42 - 121 unit/L LAB CHEMISTRY METHOD 01/14/2025 9:30 AM [facility] Total Protein 6.4 6.0 - 8.0 g/dL LAB CHEMISTRY METHOD 01/14/2025 9:30 AM [facility] Albumin 3.1(L) 3.2 - 5.0 g/dL LAB CHEMISTRY METHOD 01/14/2025 9:30 AM [facility] Total Bilirubin 1.0 0.0 - 1.4 mg/dL LAB CHEMISTRY METHOD 01/14/2025 9:30 AM [facility] Blood Venous blood specimen / Unknown Venipuncture / Unknown 01/14/2025 6:36 AM EDT 01/14/2025 7:53 AM EDT us Nicole Corbett MD LAB BLOOD ORDERABLES Final Resu lt [facility] [address] [place] [address], [place] [phone] * Basic metabolic panel (01/14/2025 6:36 AM EDT) Sodium 141 133 - 145 mmol/L LAB CHEMISTRY METHOD 01/14/2025 9:30 AM [facility] Potassium 3.6 3.5 - 5.5 mmol/L LAB CHEMISTRY METHOD 01/14/2025 9:30 AM [facility] Chloride 107 96 - 110 mmol/L LAB CHEMISTRY METHOD 01/14/2025 9:30 AM [facility] CO2 26 21 - 32 mmol/L LAB CHEMISTRY METHOD 01/14/2025 9:30 AM [facility] Anion Gap 8 3 - 11 LAB CHEMISTRY METHOD 01/14/2025 9:30 AM [facility] Glucose 70 70 - 100 mg/dL LAB CHEMISTRY METHOD 01/14/2025 9:30 AM EDT [facility] BUN 13 5 - 25 mg/dL LAB CHEMISTRY METHOD 01/14/2025 9:30 AM EDT [facility] Creatinine 0.83 0.70 - 1.30 mg/dL LAB CHEMISTRY METHOD 01/14/2025 9:30 AM EDT [facility] eGFR 92 >=60 mL/min/1. 73m2 LAB CHEMISTRY METHOD 01/14/2025 9:30 AM EDT [facility] Comment: Calculation based on the Chronic Kidney Disease Epidemiology Collaboration (CKD- EPI) equation refit without adjustment for race. Calculation based on the Chronic Kidney Disease Epidemiology Collaboration (CKD- EPI) equation refit without adjustment for race. BUN/Creatinine Ratio 15.7 LAB CHEMISTRY METHOD 01/14/2025 9:30 AM EDT [facility] Calcium 8.9 8.5 - 10.5 mg/dL LAB CHEMISTRY METHOD 01/14/2025 9:30 AM EDT [facility] Blood Venous blood specimen / Unknown Venipuncture / Unknown 01/14/2025 6:36 AM EDT 01/14/2025 7:53 AM EDT us Nicole Corbett MD LAB BLOOD ORDERABLES Final Resu lt [facility] [address] [place] [address], documented in this encounter Visit Diagnoses Diagnosis Muscle weakness (generalized) Essential (primary) hypertension Unspecified essential hypertension Unspecified dementia, unspecified severity, without behavioral disturbance, psychotic disturbance, mood disturbance, and anxiety (CMS/HCC V24, CMS/HCC V28) Chronic obstructive pulmonary disease, unspecified (CMS/HCC V24, CMS/HCC V28) documented in this encounter Care Teams [employer] Consultant Relationship Specialty Start Date End Date Gail Egan MD [address] [place] [id number] PCP - General Internal Medicine 01/26/24 documented as of this encounter
--- OUTSIDE RECORDS SUMMARY | 2025-02-24 18:56 | XMS_ITS ---
Author Organization [address] [facility] Address [address] [place] [address] Phone Care Team Providers Care Field Service Engineer Name Role Phone Gail Egan MD Primary Care Provider Community Health Worker Program Status:Waiting for Assessment (Active) Start date:11/06/2024 Enrollment date:12/05/2024 Enrollment reason:Identified using referral data Overview Community Health Worker Program Case Team Name Relationship Phone Piper Casillas(Responsible Staff) Community [facility] lt Worker Continued Care and Services Coordination
--- OUTSIDE RECORDS SUMMARY | 2025-02-24 18:56 | XMS_ITS | Clinical Summary ---
Author Organization [facility] Address [address] [place] [address] Phone Care Team Providers Care Educational Psychology Professor Name Role Phone Gail Egan MD Primary Care Provider Allergies Active Allergy Reactions Criticality Noted Date Comments Penicillins Unknown 03/03/2011 Medications multivitamin (Multiple Vitamins) tablet Take 1 tablet by mouth 1 (one) time each day. 03/03/2011 Active Eliquis 5 mg tablet TAKE 1 TABLET BY MOUTH TWICE DAILY 180 tablet 1 10/08/2024 Active Active Problems Problem Noted Date Diagnosed Date Unable to care for self 12/27/2024 Adult failure to thrive 12/24/2024 At risk for falling 12/18/2024 DVT (deep venous thrombosis) ([facility] V24, [facility] V28) 12/18/2024 Patient incapable of making informed decisions 0 11/12/2024 Vascular dementia ([facility] V24, [facility] V28) 03/2025 Normal pressure hydrocephalus ([facility] V24, [facility] V28) 10/22/2024 Failure to thrive in adult 12/13/2023 Lung mass 12/13/2023 Diverticulosis of large inte blayne without perforation or abscess without bleeding 05/03/2017 Hyperlipidemia 05/03/2017 Lower leg DVT (deep venous t hromboembolism), chronic ([facility] V24, [facility] V28) 08/09/2016 Prothrombin mutation ([facility] V24) 08/09/2016 Benign essential hypertension 12/04/2015 Internal hemorrhoids 04/27/2012 Encounters Date Type Department Care Team Description 02/18/2025 Lab Requisition [facility] [address] [place] [id number] iNcole Corbett MD Essential (primary) hypertension 01/14/2025 Lab Requisition [facility] [address] [place] [address] Nicole Corbett MD Muscle weakness (generalized); Essential (primary) hypertension; Unspecified dementia, unspecified severity, without behavioral disturbance, psychotic disturbance, mood disturbance, and anxiety ([facility] V24, [facility] V28); Chronic obstructive pulmonary disease, unspecified ([facility] V24, [facility] V28) 01/02/2025 Billing Patient Not Present Adult Medicine - [address] [address] Gail Egan MD Essential (primary) hypertension (Primary Dx); Diverticulosis of large intestine without perforation or abscess without bleeding; Hyperlipidemia, unspecified hyperlipidemia type; Hemorrhoids, unspecified hemorrhoid type; Weakness; Chronic thromboembolism of deep vein of lower extremity, unspecified laterality ([facility] V24, [facility] V28) 12/30/2024 Telephone Adult Medicine - [place] [address] [place] [address] Gail Egan MD 12/21/2024 1:41 PM EDT - 01/09/2025 9:27 AM EDT Hospital Encounter [facility] [address] [place] [address] Augusta Balderrama MD Corrado, Adam D, MD Kokkinos, Erika, MD Damri, Jorge Mike, Roman Kunz MD Touriel, Ross, MD Bukalo, Nermina, MD Kela, Kashyap Devendrabhai, MD Japaridze, Anna, MD Seralathan, Manikandan, MD Zipagan, James T, MD Bell, Rocky Stevenson MD Unable to care for self (Primary Dx); Dehydration; Lactic acidosis; Moderate dementia without behavioral disturbance, psychotic disturbance, mood disturbance, or anxiety, unspecified dementia type ([facility] V24, [facility] V28); Hypernatremia; Abnormal urinalysis; Dementia without behavioral disturbance, psychotic disturbance, mood disturbance, or anxiety, unspecified dementia severity, unspecified dementia type ([facility] V24, [facility] V28) Discharge Disposition: [facility] 12/17/[address] [phone] Gail Egan MD 12/16/2024 1:37 PM EDT - 12/18/2024 3:15 PM EDT Emergency [facility] [address] [place] [address] Dwaine Pickens MD Wire, Jessica, MD Mersier, Jasmine, DO Ziebro, John, MD Kokkinos, Erika, MD Weakness (Primary Dx); Vascular dementia without behavioral disturbance, psychotic disturbance, mood disturbance, or anxiety, unspecified dementia severity ([facility] V24, [facility] V28); Failure to thrive in adult; Benign essential hypertension; At risk for falling; Internal hemorrhoids; Deep vein thrombosis (DVT) of both lower extremities, unspecified chronicity, unspecified vein ([facility] V24, [facility] V28) Discharge Disposition: Home-Health Care [facility] 12/05/2024 Telephone [facility] [address] [place] [address] Piper Casillas from Last 3 Months Immunizations Immunization Administration Dates Next Due COVID-19 (Pfizer/Comirnaty) 12yo and older 01/20/2024 DTaP (Infanrix) 6wks to less than 7yo 07/21/2011 Influenza Quadravalent, 0.5m l (Fluad) 65yo and older 12/29/2021 Influenza Quadravalent, 0.5m l (Fluzone High-dose) 65yo and older 01/01/2023,11/21/2020,12/20/2019 Influenza trivalent, 0.5mL ( Fluad) 65yo and older 04/15/2019,12/31/2016 Influenza trivalent, 0.5mL ( Fluzone High-dose) 65yo and older 02/03/2018,02/21/2016 Influenza trivalent, 0.5mL, preservative free (Fluarix; FluLaval; Fluzone) ages 6mo and older (Afluria) 3 years and older 02/21/2016,01/06/2015,01/13/2014,12/24,12/19/2011,02/21/2011 Influenza trivalent, with pr eservative (Fluzone; Afluria) 6mo and older 01/13/2014,12/24/2012,12/19/2011 Influenza, Unspecified 01/20/2024,12/13/2020 DANILO/Joyce SARS-CoV-2 COVID -19, vector-nr, rS-Ad26, preservative free 07/08/2020 Moderna SARS-CoV-2 COVID-19, mRNA, LNP-S, preservative free 01/20/2024 Pfizer SARS-CoV-2 COVID-19, mRNA, LNP-S, preservative free 04/14/2021 Pneumococcal conjugate 13 va lent (Prevnar 13, PCV13) 2mo and older 02/21/2016 Pneumococcal conjugate 20 va lent (Prevnar 20, PCV 20) 2mo and older 04/20/2024 Pneumococcal polysaccharide 23 valent (Pneumovax 23) 2yo and older 02/21/2011 Tdap Tetanus diptheria acell ular pertussis (Boostrix; Adacel) 7yo and older 07/31/2024,07/21/2011 Zoster Live 08/01/2011 Medical History Medical History Date Comments Benign essential hypertension 12/04/2015 DX :Benign essential hypertension Diverticulosis of large inte blayne without perforation or abscess without bleeding 05/03/2017 DX:Diverticulosis of large i ntestine without perforation or abscess without bleeding Hyperlipidemia 05/03/2017 DX:Hyperlipidemi a Internal hemorrhoids 04/27/2012 DX:Internal hemorrhoids Lower leg DVT (deep venous thromboembolism), chronic (CMS/HCC V24, CMS/HCC V28) 08/09/2016 DX:Lower leg DVT (deep venou s thromboembolism), chronic (HCC) Prothrombin mutation (CMS/HCC V24) 08/09/2016 DX:Prothrombin mutation (HCC) History of malignant melanoma 03/16/2018 DX :History of malignant melanoma Family History Medical History Relation Name Comments Coronary artery disease Father Alzheimer's disease Mother Relation Name Status Comments Brother Father Mother Social History Tobacco Use Types Packs/Day Years Used Date Smoking Tobacco: Former Tobacco Cessation:Counseling Given: Not Answered Alcohol Use [...] on file Sexual Orientation Not on file Obstetrics History Last Filed Vital Signs Vital Sign Reading Time Taken Comments Blood Pressure 122/67 01/09/2025 7:57 AM EDT Pulse 58 01/09/2025 7:57 AM EDT Temperature 36.9 C (98.4 F) 01/09/2025 7:57 AM EDT Respiratory Rate 18 01/09/2025 7:57 AM EDT Oxygen Saturation 100% 01/09/2025 7:57 AM EDT Inhaled Oxygen Concentration - - Weight 68 kg (150 lb) 01/07/2025 3:51 AM EDT Height 167.6 cm (5' 6 ) 12/21/2024 1:48 PM EDT Body Mass Index 24.21 12/21/2024 1:48 PM EDT Plan of Treatment Health Maintenance Due Date Last Done Comments Colorectal Cancer Screening: Colonoscopy 1950 Zoster Vaccines (1 of 2) 09/26/2011 08/01/2011 Abdominal Aortic Aneurysm (AAA) Screen 03/12/2022 Hepatitis C Screening 03/12/2022 Medicare Annual Wellness Visit 03/12/2022 Depression Screening 04/03/2024 COVID-19 Vaccine ( season) 2024 01/20/2024, 01/20/2024, 12/29/2021, Additional history exists Influenza Vaccine (#1) 2024 , 01/01/2023, 12/29/2021, Additional history exists RSV Immunization Adult Patients (1 - 1-dose 75+ series) 2025 Social Influencers of Health Screening 12/30/2025 12/30/2024 Falls Risk Assessment 01/09/2026 01/09/2025 Hypertension/CHF/CAD Annual BMP Blood Test 01/14/2026 01/14/2025, 01/14/2025, 01/06/2025, Additional history exists Cholesterol Screening (Lipid Panel) 02/01/2029 02/02/2024, 09/12/2022 DTaP,Tdap,and Td Vaccines (4 - Td or Tdap) 07/31/2034 07/31/2024, 07/21/2011, 07/21/2011 Pneumococcal Vaccine: 50+ Years Completed 04/20/2024, 02/21/2016, 02/21/2011 HIB Vaccines Aged Out No longer eligi ble based on patient's age to complete this topic HPV Vaccines Aged Out No longer eligi ble based on patient's age to complete this topic Hepatitis A Vaccines Aged Out No long er eligible based on patient's age to complete this topic Hepatitis B Vaccines Aged Out No long er eligible based on patient's age to complete this topic IPV Vaccines Aged Out No longer eligi ble based on patient's age to complete this topic MMR Vaccines Aged Out No longer eligi ble based on patient's age to complete this topic Meningococcal ACWY Vaccine Aged Out N o longer eligible based on patient's age to complete this topic Meningococcal B Vaccine Aged Out No l onger eligible based on patient's age to complete this topic RSV Immunization Patients Under 20 months Aged Out No longer eligible based on patient's age to complete this topic Varicella Vaccines Aged Out No longer eligible based on patient's age to complete this topic Procedures Procedure Name Priority Date/Time Associated Diagnosis Comments COMPLETE BLOOD COUNT Routine 02/18/2025 8:04 AM EST Essential (primary) hypertension CBC WITH AUTO DIFFERENTIAL Routine 01/14/2025 6:36 [...] disease, unspecified (CMS/HCC V24, CMS/HCC V28) CBC WITH AUTO DIFFERENTIAL Routine 01/06/2025 6:27 AM EDT CBC AND DIFFERENTIAL Routine 01/06/2025 6:27 AM EDT BASIC METABOLIC PANEL Routine 01/06/2025 6:27 AM EDT MAGNESIUM Routine 01/06/2025 6:27 AM EDT PHOSPHORUS Routine 01/06/2025 6:27 AM EDT CBC WITH AUTO DIFFERENTIAL Routine 12/31/2024 7:15 AM EDT CBC AND DIFFERENTIAL Routine 12/31/2024 7:15 AM EDT BASIC METABOLIC PANEL Routine 12/31/2024 7:15 AM EDT CBC WITH AUTO DIFFERENTIAL STAT 12/24/2024 12:47 PM EDT BASIC METABOLIC PANEL STAT 12/24/2024 12:47 PM EDT CBC AND DIFFERENTIAL STAT 12/24/2024 12:47 PM EDT CULTURE BLOOD STAT 12/21/2024 8:39 PM EDT CULTURE BLOOD STAT 12/21/2024 8:35 PM EDT LACTATE, WITH REFLEX Timed 12/21/2024 7:39 PM EDT XR CHEST 1 VIEW STAT 12/21/2024 6:06 PM EDT URINALYSIS WITH REFLEX MICROSCOPIC STAT 12/21/2024 5:41 PM EDT URINALYSIS WITH REFLEX MICROSCOPIC STAT 12/21/2024 5:41 PM EDT MAGNESIUM STAT 12/21/2024 4:45 PM EDT BASIC METABOLIC PANEL STAT 12/21/2024 4:45 PM EDT COMPLETE BLOOD COUNT STAT 12/21/2024 3:22 PM EDT LACTATE, WITH REFLEX STAT 12/21/2024 3:22 PM EDT URINALYSIS WITH REFLEX MICROSCOPIC STAT 12/16/2024 3:51 PM EDT URINALYSIS WITH REFLEX MICROSCOPIC STAT 12/16/2024 3:51 PM EDT XR CHEST 2 VIEWS STAT 12/16/2024 3:00 PM EDT [id number], RSV, FLU A AND B QUALITATIVE RT-PCR, INTERNAL LAB STAT 12/16/2024 2:34 PM EDT CBC WITH AUTO DIFFERENTIAL STAT 12/16/2024 2:29 PM EDT MAGNESIUM STAT 12/16/2024 2:29 PM EDT ETHANOL STAT 12/16/2024 2:29 PM EDT COMPREHENSIVE METABOLIC PANEL STAT 12/16/2024 2:29 PM EDT CBC AND DIFFERENTIAL STAT 12/16/2024 2:29 PM EDT LIPID PANEL Routine 09/12/2022 from Last 3 Months or Most Recently Relevant to Health Maintenance Results * (ABNORMAL) Complete blood count (02/18/2025 8:04 AM EST) Only the most recent of2 resultswithin the time period is included. WBC 5.9 4.8 - 10.8 K/mcL LAB HEMETOLOGY METHOD 02/18/2025 10:26 AM [facility] RBC 4.30(L) 4.50 - 5.50 M/mcL LAB HEMETOLOGY METHOD 02/18/2025 10:26 AM [facility] Hemoglobin 13.1(L) 13.5 - 17.5 g/dL LAB HEMETOLOGY METHOD 02/18/2025 10:26 AM [facility] Hematocrit 39.9(L) 42.0 - 54.0 % LAB HEMETOLOGY METHOD 02/18/2025 10:26 AM [facility] MCV 92.1 79.0 - 98.0 FL LAB HEMETOLOGY METHOD 02/18/2025 10:26 AM [facility] MCH 30.3 27.0 - 32.0 pcg LAB HEMETOLOGY METHOD 02/18/2025 10:26 AM [facility] MCHC 32.8 32.0 - 37.0 g/dL LAB HEMETOLOGY METHOD 02/18/2025 10:26 AM [facility] RDW 13.8 11.0 - 15.0 % LAB HEMETOLOGY METHOD 02/18/2025 10:26 AM [facility] Platelets 152 130 - 400 K/mcL LAB HEMETOLOGY METHOD 02/18/2025 10:26 AM [facility] MPV 11.3(H) 7.0 - 11.0 FL LAB HEMETOLOGY METHOD 02/18/2025 10:26 AM [facility] NRBC 0.0 <1.0 % LAB HEMETOLOGY METHOD 02/18/2025 10:26 AM [facility] NRBC Absolute 0.00 <0.10 K/[facility] LAB HEMETOLOGY METHOD 02/18/2025 10:26 AM EST [facility] Blood Venous blood specimen / Unknown Venipuncture / Unknown 02/18/2025 8:04 AM EST 02/18/2025 10:04 AM EST us Nicole Corbett MD LAB BLOOD ORDERABLES Final Resu lt [facility] [address] [place] [address], [place] [phone] * (ABNORMAL) CBC auto differential (01/14/2025 6:36 AM EDT) Only the most recent of5 resultswithin the time period is included. WBC 6.4 4.8 - 10.8 K/mcL LAB HEMETOLOGY METHOD 01/14/2025 8:40 AM EDT [facility] RBC 4.30(L) 4.50 - 5.50 M/[facility] LAB HEMETOLOGY METHOD 01/14/2025 8:40 AM EDT [facility] Hemoglobin 12.7(L) 13.5 - 17.5 g/dL LAB HEMETOLOGY METHOD 01/14/2025 8:40 AM EDT [facility] Hematocrit 39.7(L) 42.0 - 54.0 % LAB HEMETOLOGY METHOD 01/14/2025 8:40 AM EDT [facility] MCV 92.5 79.0 - 98.0 FL LAB HEMETOLOGY METHOD 01/14/2025 8:40 AM EDT [facility] MCH 29.6 27.0 - 32.0 pcg LAB HEMETOLOGY METHOD 01/14/2025 8:40 AM EDT [facility] MCHC 32.0 32.0 - 37.0 g/dL LAB HEMETOLOGY METHOD 01/14/2025 8:40 AM [facility] RDW 13.6 11.0 - 15.0 % LAB HEMETOLOGY METHOD 01/14/2025 8:40 AM [facility] Platelets 172 130 - 400 K/mcL LAB HEMETOLOGY METHOD 01/14/2025 8:40 AM [facility] MPV 11.3(H) 7.0 - 11.0 FL LAB HEMETOLOGY METHOD 01/14/2025 8:40 AM [facility] NRBC 0.0 <1.0 % LAB HEMETOLOGY METHOD 01/14/2025 8:40 AM [facility] NRBC Absolute 0.00 <0.10 K/mcL LAB HEMETOLOGY METHOD 01/14/2025 8:40 AM [facility] Neutrophils Relative 62.7 % LAB HEMETOLOGY METHOD 01/14/2025 8:40 AM [facility] Lymphocytes Relative 24.5 % LAB HEMETOLOGY METHOD 01/14/2025 8:40 AM [facility] Monocytes Relative 7.2 % LAB HEMETOLOGY METHOD 01/14/2025 8:40 AM [facility] Eosinophils Relative 4.8 % LAB HEMETOLOGY METHOD 01/14/2025 8:40 AM [facility] Basophils Relative 0.5 % LAB HEMETOLOGY METHOD 01/14/2025 8:40 AM [facility] Immature Granulocytes Relative 0.3 % LAB HEMETOLOGY METHOD 01/14/2025 8:40 AM [facility] Neutrophils Absolute 4.01 1.50 - 7.00 K/mcL LAB HEMETOLOGY METHOD 01/14/2025 8:40 AM [facility] Lymphocytes Absolute 1.57 1.00 - 5.00 K/mcL LAB HEMETOLOGY METHOD 01/14/2025 8:40 AM EDT [facility] Monocytes Absolute 0.46 0.20 - 1.00 K/mcL LAB HEMETOLOGY METHOD 01/14/2025 8:40 AM EDT [facility] Eosinophils Absolute 0.31 0.00 - 0.50 K/[facility] LAB HEMETOLOGY METHOD 01/14/2025 8:40 AM EDT [facility] Basophils Absolute 0.03 0.00 - 0.20 K/[facility] LAB HEMETOLOGY METHOD 01/14/2025 8:40 AM EDT [facility] Immature Granulocytes Absolute 0.02 0.00 - 0.03 K/[facility] LAB HEMETOLOGY METHOD 01/14/2025 8:40 AM EDT [facility] Blood Venous blood specimen / Unknown Venipuncture / Unknown 01/14/2025 6:36 AM EDT 01/14/2025 7:53 AM EDT Nicole Corbett MD LAB BLOOD ORDERABLES Final Resu lt [facility] [address] [place] [address], [place] [phone] * Magnesium (01/14/2025 6:36 AM EDT) Only the most recent of4 resultswithin the time period is included. Magnesium 2.2 1.9 - 2.6 mg/dL LAB CHEMISTRY METHOD 01/14/2025 9:30 AM EDT [facility] Blood Venous blood specimen / Unknown Venipuncture / Unknown 01/14/2025 6:36 AM EDT 01/14/2025 7:53 AM EDT us Nicole Corbett MD LAB BLOOD ORDERABLES Final Resu lt [facility] [address] [place] [address], [place] [phone] * (ABNORMAL) Folate (01/14/2025 6:36 AM EDT) [facility] Folate >20.0(H) 2.8 - 17.0 ng/ml LAB CHEMISTRY METHOD 01/14/2025 9:51 AM T [facility] Blood Venous blood specimen / Unknown Venipuncture / Unknown 01/14/2025 6:36 AM EDT 01/14/2025 7:53 AM EDT us Nicole Corbett MD LAB BLOOD ORDERABLES Final Resu lt [facility] [address] [place] [address], [place] [phone] * (ABNORMAL) Comprehensive metabolic panel (01/14/2025 6:36 AM EDT) Only the most recent of2 resultswithin the time period is included. [facility] Sodium 141 133 - 145 mmol/L LAB CHEMISTRY METHOD 01/14/2025 9:30 AM [facility] Potassium 3.6 3.5 - 5.5 mmol/L LAB CHEMISTRY METHOD 01/14/2025 9:30 AM [facility] Chloride 107 96 - 110 mmol/L LAB CHEMISTRY METHOD 01/14/2025 9:30 AM [facility] CO2 26 21 - 32 mmol/L LAB CHEMISTRY METHOD 01/14/2025 9:30 AM [facility] Anion Gap 8 3 - 11 LAB CHEMISTRY METHOD 01/14/2025 9:30 AM [facility] Glucose 70 70 - 100 mg/dL LAB CHEMISTRY METHOD 01/14/2025 9:30 AM [facility] BUN 13 5 - 25 mg/dL LAB CHEMISTRY METHOD 01/14/2025 9:30 AM [facility] Creatinine 0.83 0.70 - 1.30 mg/dL LAB CHEMISTRY METHOD 01/14/2025 9:30 AM [facility] eGFR 92 >=60 mL/min/1. 73m2 LAB CHEMISTRY METHOD 01/14/2025 9:30 AM [facility] Comment:Calculation based on the Chronic Kidney Disease Epidemiology Collaboration (CKD-EPI) equation refit without adjustment for race. BUN/Creatinine Ratio 15.7 LAB CHEMISTRY METHOD 01/14/2025 9:30 AM [facility] Calcium 8.9 8.5 - 10.5 mg/dL LAB CHEMISTRY METHOD 01/14/2025 9:30 AM [facility] AST (SGOT) 19 10 - 42 unit/L LAB CHEMISTRY METHOD 01/14/2025 9:30 AM [facility] ALT (SGPT) 23 10 - 60 unit/L LAB CHEMISTRY METHOD 01/14/2025 9:30 AM [facility] Alkaline Phosphatase 85 42 - 121 unit/L LAB CHEMISTRY METHOD 01/14/2025 9:30 AM [facility] Total Protein 6.4 6.0 - 8.0 g/dL LAB CHEMISTRY METHOD 01/14/2025 9:30 AM [facility] Albumin 3.1(L) 3.2 - 5.0 g/dL LAB CHEMISTRY METHOD 01/14/2025 9:30 AM [facility] Total Bilirubin 1.0 0.0 - 1.4 mg/dL LAB CHEMISTRY METHOD 01/14/2025 9:30 AM [facility] Blood Venous blood specimen / Unknown Venipuncture / Unknown 01/14/2025 6:36 AM EDT 01/14/2025 7:53 AM EDT us Nicole Corbett MD LAB BLOOD ORDERABLES Final Resu lt [facility] [address] [place] [address], [place] [phone] * Basic metabolic panel (01/14/2025 6:36 AM EDT) Only the most recent of5 resultswithin the time period is included. Sodium 141 133 - 145 mmol/L LAB CHEMISTRY METHOD 01/14/2025 9:30 AM [facility] Potassium 3.6 3.5 - 5.5 mmol/L LAB CHEMISTRY METHOD 01/14/2025 9:30 AM [facility] Chloride 107 96 - 110 mmol/L LAB CHEMISTRY METHOD 01/14/2025 9:30 AM [facility] CO2 26 21 - 32 mmol/L LAB CHEMISTRY METHOD 01/14/2025 9:30 AM [facility] Anion Gap 8 3 - 11 LAB CHEMISTRY METHOD 01/14/2025 9:30 AM [facility] Glucose 70 70 - 100 mg/dL LAB CHEMISTRY METHOD 01/14/2025 9:30 AM [facility] BUN 13 5 - 25 mg/dL LAB CHEMISTRY METHOD 01/14/2025 9:30 AM [facility] Creatinine 0.83 0.70 - 1.30 mg/dL LAB CHEMISTRY METHOD 01/14/2025 9:30 AM [facility] eGFR 92 >=60 mL/min/1. 73m2 LAB CHEMISTRY METHOD 01/14/2025 9:30 AM [facility] Comment: Calculation based on the Chronic Kidney Disease Epidemiology Collaboration (CKD- EPI) equation refit without adjustment for race. Calculation based on the Chronic Kidney Disease Epidemiology Collaboration (CKD- EPI) equation refit without adjustment for race. BUN/Creatinine Ratio 15.7 LAB CHEMISTRY METHOD 01/14/2025 9:30 AM [facility] Calcium 8.9 8.5 - 10.5 mg/dL LAB CHEMISTRY METHOD 01/14/2025 9:30 AM [facility] Blood Venous blood specimen / Unknown Venipuncture / Unknown 01/14/2025 6:36 AM EDT 01/14/2025 7:53 AM EDT Nicloe Corbett MD LAB BLOOD ORDERABLES Final Resu lt Performing Organization Address City/[facility]/ZIP Co de Phone Number [facility] [address] [place] [address], [place] [phone] * Phosphorus (01/06/2025 6:27 AM EDT) Phosphorus 3.4 2.5 - 4.5 mg/dL LAB CHEMISTRY METHOD 01/06/2025 7:27 AM EDT [facility] Blood Venous blood specimen / Unknown Venipuncture / Unknown 01/06/2025 6:27 AM EDT 01/06/2025 6:33 AM EDT Zheng Liang MD LAB BLOOD ORDERABLES Fi nal Result Performing Organization Address [facility]/ZIP Co de Phone Number [facility] [address] [place] [address], [place] [phone] * Blood Culture, Peripheral #1 (12/21/2024 8:39 PM EDT) Only the most recent of2 resultswithin the time period is included. Culture, Blood No growth at 5 days 12/26/2024 10:02 PM EDT [facility] Blood Venous blood specimen / Unknown Venipuncture / Unknown 12/21/2024 8:39 PM EDT 12/21/2024 8:59 PM EDT Luis Alberto Chowdhury MD LAB MICROBIOLOGY - GENERAL ORD ERABLES Final Result Performing Organization Address City/[facility]/ZIP Co de Phone Number [facility] [address] [place] [address], [place] [phone] * Lactate, with reflex (12/21/2024 7:39 PM EDT) Only the most recent of2 resultswithin the time period is included. LACTIC ACID 1.7 0.4 - 2.0 mmol/L LAB CHEMISTRY METHOD 12/21/2024 8:15 PM EDT [facility] Blood Venous blood specimen / Unknown Venipuncture / Unknown 12/21/2024 7:39 PM EDT 12/21/2024 7:48 PM EDT us Augusta Balderrama MD LAB BLOOD ORDERABLES Final Resul t [facility] [address] [place] [address], [place] [phone] * XR Chest 1 View (12/21/2024 6:06 PM EDT) Anatomical Region Laterality Modality Body Radiographic Rebecca ging 12/22/2024 8:29 AM EDT Impressions 12/22/2024 8:31 AM EDT No pneumonia or edema. No suspicious interval change. -------- FINAL REPORT -------- Dictated By: Chandan Romero Dictated Date: 12/22/2024 08:29 ET Assigned Physician: Chandan Romero Reviewed and Electronically Signed By: Chandan Romero Signed Date: 12/22/2024 08:31 ET Workstation ID: [id number] Transcribed By: Self Edit Transcribed Date: 12/22/2024 08:29 ET Narrative 12/22/2024 8:31 AM EDT EXAMINATION: CHEST CLINICAL INFORMATION: Evaluate infection. COMPARISON: Frontal view 12/16/24 TECHNIQUE: Sitting frontal portable view of the chest FINDINGS: There is lordosis and rotation to the left. There is calcification of the aortic arch. The cardiac size is within normal limits. The central vessels are relatively prominent. No peripheral edema. Relatively large lung volumes. Subsegmental linear opacity in the periphery of the left lower lung. No pneumothorax. Degenerative changes around the right shoulder and some posterior metal deformities lateral left ribs. Procedure Note Chandan Romero MD - 12/22/2024 EXAMINATION: CHEST CLINICAL INFORMATION: Evaluate infection. COMPARISON: Frontal view 12/16/24 TECHNIQUE: Sitting frontal portable view of the chest FINDINGS: There is lordosis and rotation to the left. There is calcification of the aortic arch. The cardiac size is withinnormal limits. The central vessels are relatively prominent. No peripheraledema. Relatively large lung volumes. Subsegmental linear opacity in the periphery of the left lower lung. No pneumothorax. Degenerative changes around the right shoulder and some posterior metaldeformities lateral left ribs. IMPRESSION: No pneumonia or edema. No suspicious interval change. -------- FINAL REPORT -------- Dictated By: Chandan Romero Dictated Date: 12/22/2024 08:29 ET Assigned Physician: Chandan Romero Reviewed and Electronically Signed By: Chandan Romero Signed Date: 12/22/2024 08:31 ET Workstation ID: [id number] Transcribed By: Self Edit Transcribed Date: 12/22/2024 08:29 ET us Augusta Balderrama MD IMG XR PROCEDURES Final Result * (ABNORMAL) Urinalysis with reflex microscopic (12/21/2024 5:41 PM EDT) Only the most recent of2 resultswithin the time period is included. Specific [place] Urine 1.028 1.003 - 1.030 LAB URINALYSIS - AUTOMATED METHOD 12/21/2024 6:32 PM EDT [facility] pH, Urine 5.0 5.0 - 8.0 pH LAB URINALYSIS - AUTOMATED METHOD 12/21/2024 6:32 PM EDT [facility] Leukocytes, Urine Small(A) Negative LAB URINALYSIS - AUTOMATED METHOD 12/21/2024 6:32 PM [facility] Nitrite, Urine Negative Negative LAB URINALYSIS - AUTOMATED METHOD 12/21/2024 6:32 PM EDT [facility] Protein, Urine 30(A) <=Trace mg/dL LAB URINALYSIS - AUTOMATED METHOD 12/21/2024 6:32 PM [facility] Glucose, Urine Negative Negative mg/dL LAB URINALYSIS - AUTOMATED METHOD 12/21/2024 6:32 PM [facility] Ketones, Urine Trace(A) Negative mg/dL LAB URINALYSIS - AUTOMATED METHOD 12/21/2024 6:32 PM [facility] Urobilinogen, Urine 1.0 0.2 - 1.0 mg/dL LAB URINALYSIS - AUTOMATED METHOD 12/21/2024 6:32 PM [facility] Bilirubin, Urine Negative Negative LAB URINALYSIS - AUTOMATED METHOD 12/21/2024 6:32 PM [facility] Blood, Urine Negative Negative LAB URINALYSIS - AUTOMATED METHOD 12/21/2024 6:32 PM [facility] RBC, Urine 4.0 0 - 4 /HPF LAB URINALYSIS - AUTOMATED METHOD 12/21/2024 6:32 PM [facility] WBC, Urine 15.4(H) 0 - 4 /HPF LAB URINALYSIS - AUTOMATED METHOD 12/21/2024 6:32 PM [facility] Squamous Epithelial, Urine 51 0 - 60 /LPF LAB URINALYSIS - AUTOMATED METHOD 12/21/2024 6:32 PM [facility] Bacteria, Urine Negative Negative /HPF LAB URINALYSIS - AUTOMATED METHOD 12/21/2024 6:32 PM [facility] Hyaline Casts, Urine 4.4(H) 0 - 3 /LPF LAB URINALYSIS - AUTOMATED METHOD 12/21/2024 6:32 PM [facility] Urine Urine specimen obtained by clean catch procedure / Unknown Non-blood Collection / Unknown 12/21/2024 5:41 PM EDT 12/21/2024 5:56 PM EDT us Augusta Balderrama MD LAB URINE ORDERABLES Final Resul t [facility] [address] [place] [address], [place] [phone] * XR Chest 2 Views (12/16/2024 3:00 PM EDT) Anatomical Region Laterality Modality Body Radiographic Rebecca ging 12/16/2024 3:25 PM EDT Impressions 12/16/2024 3:27 PM EDT Impression: No active pulmonary process identified. Telerad SASCHA ([id number]) -------- FINAL REPORT -------- Dictated By: Shanthi Wilson Dictated Date: 12/16/2024 15:25 ET Assigned Physician: Shanthi Wilson Reviewed and Electronically Signed By: Shanthi Wilson Signed Date: 12/16/2024 15:27 ET Workstation ID: [id number] Transcribed By: Self Edit Transcribed Date: 12/16/2024 15:25 ET Narrative 12/16/2024 3:27 PM EDT History: Weakness. Comparison: 05/07/21, thoracic CT 01/15/24 Findings: PA and lateral views. The cardiac silhouette remains normal in size. Hilar contours and pulmonary vascularity are within normal limits. The right upper lobe nodular process noted on the previous CT is no longer seen. Minimal thin curvilinear opacity in the left lower lung suggests atelectasis or scar, unchanged. The costophrenic angles are sharp. Cholecystectomy clips are noted. Procedure Note Shanthi Wilson MD - 12/16/2024 History: Weakness. Comparison: 05/07/21, thoracic CT 01/15/24 Findings: PA and lateral views. The cardiac silhouette remains normal in size. Hilarcontours and pulmonary vascularity are within normal limits. The rightupper lobe nodular process noted on the previous CT is no longer seen.Minimal thin curvilinear opacity in the left lower lung suggestsatelectasis or scar, unchanged. The costophrenic angles are sharp. Cholecystectomy clips are noted. IMPRESSION: Impression: No active pulmonary process identified. Telerad SASCHA ([id number]) -------- FINAL REPORT -------- Dictated By: Shanthi Wilson Dictated Date: 12/16/2024 15:25 ET Assigned Physician: Shanthi Wilson Reviewed and Electronically Signed By: Shanthi Wilson Signed Date: 12/16/2024 15:27 ET Workstation ID: [id number] Transcribed By: Self Edit Transcribed Date: 12/16/2024 15:25 ET us Dwaine Pickens MD IMG XR PROCEDURES Final Res ult * [id number], RSV, Influenza A and B qualitative RT-PCR (12/16/2024 2:34 PM EDT) Influenza A PCR Not Detected Not Detected LAB MICROBIOLOGY METHOD 12/16/2024 3:27 PM EDT [facility] Influenza B PCR Not Detected Not Detected LAB MICROBIOLOGY METHOD 12/16/2024 3:27 PM EDT [facility] RSV PCR Not Detected Not Detected LAB MICROBIOLOGY METHOD 12/16/2024 3:27 PM EDT [facility] SARS COV-2 Not Detected Not Detected LAB MICROBIOLOGY METHOD 12/16/2024 3:27 PM EDT [facility] Swab Both anterior nares / Unknown Non-blood Collection / Unknown 12/16/2024 2:34 PM EDT 12/16/2024 2:41 PM EDT Narrative [facility] - 12/16/2024 3:27 PM EDT Disclaimer: Testing was performed using the [employer] GeneXpert Xpress SARS-CoV-2 _Flu_RSV PLUS PCR assay. The manner in which this information is used to guide patient care is the responsibility of the healthcare provider. Results should be correlated with the clinical history, epidemiological data, and other data available to the clinician evaluating the patient. Negative results do not preclude infection. This test has been authorized by the FDA under an Emergency Use Authorization (EUA). This test is only authorized for the duration of time the declaration that circumstances exist justifying the authorization of the emergency use of in vitro diagnostic tests for detection of SARS-CoV-2 virus and/or diagnosis of COVID-19 infection under section 564 (b) (1) of the Act, 21 U.S.C 360bbb-3 (b) (1), unless the authorization is terminated or revoked sooner. Reference Range: Not Detected Fact sheet for Healthcare providers can be found at https://www.fda.gov/media/109389/download. Fact sheet for Healthcare patients can be found at https://www.fda.gov/media/393873/download. Dwaine Pickens MD LAB MICROBIOLOGY - GENERAL ORDERABLES Final Result Performing Organization Address City/[facility]/ZIP Co de Phone Number [facility] [address] [place] [address], * Ethanol (12/16/2024 2:29 PM EDT) Pathologist [facility] Ethanol Level 5 0 - 10 mg/dL LAB CHEMISTRY METHOD 12/16/2024 3:16 PM EDT [facility] Blood Venous blood specimen / Unknown Venipuncture / Unknown 12/16/2024 2:29 PM EDT 12/16/2024 2:39 PM EDT Dwaine Pickens MD LAB BLOOD ORDERABLES Final Result [facility] [address] [place] [address], [place] [phone] * Lipid panel (09/12/2022) LDL/HDL Ratio 3 0 - 4 Triglycerides 102 0 - 150 mg/dL Cholesterol 159 0 - 200 mg/dL HDL 58 >=40 mg/dL LDL Cholesterol 81 0 - 100 mg/dL Blood Venous blood specimen / Unknown Munir Nielson MD LAB BLOOD ORDERABLES Mine l Result from Last 3 Months or Most Recently Relevant to Health Maintenance Insurance [employer] - [place] MEDICARE AD[place] Advance Directives Documents on File Type Date Recorded Patient Backfiller Expl anation Advance Directives and Living Will 11/12/2024 12:55 PM Proxy 10/23/2024 Advance Directives and Living Will 10/28/2024 3:19 PM MOLST Advance Directives and Living Will 10/24/2024 9:32 AM Gini [facility] Proxy Power of Logistics Program Manager 10/21/2024 8:11 AM Ju Licona Advance Directives and Living Will 02/06/2024 3:00 PM MOLST * No CPR/Do Not Intubate (Latest Code Status on File) Date Activated Date Inactivated Comments 12/22/2024 8:37 AM 01/09/2025 11:33 AM This code s tatus was ascertained in the following way: Code status discussion: per living will or healthcare instructions To update the patient's code status, place a code status order. Do not modify or discontinue any currently active code status orders. * No CPR/Do Not Intubate Date Activated Date Inactivated Comments 12/16/2024 8:21 PM 12/18/2024 5:[address] atus was ascertained in the following way: Code status discussion: discussion with patient To update the patient's code status, place a code status order. Do not modify or discontinue any currently active code status orders. * No CPR/Do Not Intubate Date Activated Date Inactivated Comments 10/22/2024 9:03 AM 10/25/2024 5:[address] atus was ascertained in the following way: Code status discussion: per living will or healthcare instructions Healthcare Agents on File Name Relationship Healthcare Agent Relationship Communication Gini Martinez First Alternate Health Care Agent Glory May Second Alternate Health Care Agent Care Teams Educational Psychology Professor Relationship Specialty Start Date End Date Gail Egan MD [address] [place] [id number] PCP - General Internal Medicine 01/26/24
== END 2025-02-24 14:54 | disposition home or self-care (01) ==
PROVIDERS: Visit Provider Psychiatry & Neurology Neurology
DX: F03.90 Unspecified dementia, unspecified severity, without behavioral disturbance, psychotic disturbance, mood disturbance, and anxiety (principal); G30.1 Alzheimer's disease with late onset; F02.C0 Dementia in other diseases classified elsewhere, severe, without behavioral disturbance, psychotic disturbance, mood disturbance, and anxiety
CPT/HCPCS: 99205

== ENCOUNTER → 2025-02-24 13:57 | Outpatient (BNVA) | payer MEDICARE, OTHER, SELFPAY | PROVIDERS: Visit Provider Psychiatry & Neurology Neurology | DX: G30.1 Alzheimer's disease with late onset (principal); F02.C0 Dementia in other diseases classified elsewhere, severe, without behavioral disturbance, psychotic disturbance, mood disturbance, and anxiety | CPT/HCPCS: 99202 ==